=== PATIENT | female | born 1945 ===

== ENCOUNTER 2023-07-11 06:11 | Outpatient (RCR) | payer MEDICARE, OTHER, SELFPAY | END 2023-07-11 23:59 | disposition home or self-care (01) | LOC: RPT 06:11 | PROVIDERS: ATTENDING PHYSICIAN Internal Medicine Geriatric Medicine | DX: I89.0 Lymphedema, not elsewhere classified (principal); Z73.6 Limitation of activities due to disability; R26.2 Difficulty in walking, not elsewhere classified | CPT/HCPCS: 97162; 97535; 97760 ==

== ENCOUNTER 2023-08-01 16:15 | Outpatient (RCR) | payer MEDICARE, OTHER, SELFPAY | END 2023-08-01 23:59 | disposition home or self-care (01) | LOC: RPT 16:15 | PROVIDERS: ATTENDING PHYSICIAN Internal Medicine Geriatric Medicine | DX: I89.0 Lymphedema, not elsewhere classified (principal); Z73.6 Limitation of activities due to disability | CPT/HCPCS: 97535; 97763 ==